=== PATIENT | female | born 1960 | race Caucasian/White ===

== ENCOUNTER 2017-05-18 09:37 | Day surgery (SDC) | payer OTHER ==
[2017-05-18] MEDS ORDERED: LIDOCAINE 4% SOLUTION 50 ML BTL (10:46)
[2017-05-18] MEDS ORDERED: FENTAnyl 50 MCG/ML VIAL (11:44)
[2017-05-18] MEDS ORDERED: MIDAZOLAM 1 MG/ML 2 ML INJ ×2 (11:45)
== END 2017-05-18 12:12 | disposition home or self-care (01) ==
LOC: GIL 09:37
DX: Z12.11 Encounter for screening for malignant neoplasm of colon (principal); K29.50 Unspecified chronic gastritis without bleeding; K21.0 Gastro-esophageal reflux disease with esophagitis; D12.3 Benign neoplasm of transverse colon; K64.4 Residual hemorrhoidal skin tags; I10 Essential (primary) hypertension
CPT/HCPCS: 43239; 88305; 88312; 88313